=== PATIENT | female | born 1955 | race African-American/Black ===

== ENCOUNTER 2020-08-20 14:15 | Emergency (ER) | payer BC, OTHER ==
[~2020-08-20] VITALS: Ht 154.9 cm; Wt 72.5 kg
[2020-08-20 14:18] VITALS: BP 190/102
== END 2020-08-20 17:01 | disposition left against medical advice (07) ==
LOC: ER 14:15
DX: R07.89 Other chest pain (principal); M54.89 Other dorsalgia; V49.40XA Driver injured in collision with unspecified motor vehicles in traffic accident, initial encounter; Y93.89 Activity, other specified; Y92.488 Other paved roadways as the place of occurrence of the external cause
CPT/HCPCS: 93005; 99283